=== PATIENT | female | born 1995 | race Two or more races ===

== ENCOUNTER → 2025-06-08 | Outpatient (CLI) | payer OTHER ==
[2025-06-08 13:47] LABS: PLATELET COUNT, AUTOMATED 289 10^3/uL (150-450)
[2025-06-08 14:36] LABS: HIV 1&2 SCREEN NEGATIVE (NEGATIVE)
[2025-06-08 14:45] LABS: HEPATITIS C VIRUS ABY INDEX < 0.02 INDEX (<0.8)
[2025-06-08 15:19] LABS: Trichomonas vaginalis (AMP) NOT DETECTED (NEGATIVE)
[2025-06-08 15:43] LABS: GC DNA AMPLIFICATION NEGATIVE (NEGATIVE)
== END ==
LOC: M PLALAB 10:32
PROVIDERS: ATTEND Advanced Practice Midwife
DX: Z34.81 Encounter for supervision of other normal pregnancy, first trimester (principal)